=== PATIENT | male | born 1985 | race Caucasian/White ===

== ENCOUNTER 2017-07-26 16:24 | Emergency (ER) | payer MEDICAID ==
[~2017-07-26] VITALS: Ht 180.3 cm; Wt 80.9 kg
[~2017-07-26 16:24] MED LIST: RISP2 PO; TNFMISC; [UNRECOGNIZED DRUG - CODE] TP
[2017-07-26 16:50] VITALS: BP 136/73
[2017-07-26] MEDS ORDERED: BUSP5TAB20 PO (17:22)
== END 2017-07-26 18:49 | disposition left against medical advice (07) ==
LOC: EMS 16:25
DX: R11.0 Nausea (principal); H53.8 Other visual disturbances; F17.210 Nicotine dependence, cigarettes, uncomplicated; F12.90 Cannabis use, unspecified, uncomplicated; F19.90 Other psychoactive substance use, unspecified, uncomplicated; Z53.21 Procedure and treatment not carried out due to patient leaving prior to being seen by health care provider

== ENCOUNTER 2017-07-26 19:24 | Emergency (ER) | payer MEDICAID ==
[~2017-07-26] VITALS: Ht 177.8 cm; Wt 84.0 kg
[~2017-07-26 19:24] MED LIST changes: +BUSP5TAB20 PO
[2017-07-26 19:27] VITALS: BP 129/70
== END 2017-07-26 22:24 | disposition left against medical advice (07) ==
LOC: EMS 22:06
DX: Z53.21 Procedure and treatment not carried out due to patient leaving prior to being seen by health care provider (principal)